=== PATIENT | female | born 1965 | race Caucasian/White ===

== ENCOUNTER 2019-11-21 10:18 | Emergency (ER) | payer SELFPAY ==
[2019-11-21 11:51] LABS: #Basophils 0.1 thou/uL (0.0-0.2); #Eosinphils 0.1 thou/uL (0.0-0.7); #Lymphocytes 2.2 thou/uL (1.20-3.40); #Neutrophils 11.3 thou/uL (1.40-6.50); %Basophils 0.9 % (0.0-1.0); %Eosinophils 0.5 % (0.0-10.0); %Lymphocytes 15.2 % (21.0-51.0); %Monocytes 6.5 % (0.0-10.0); %Neutrophils 76.9 % (42.0-75.0); Hemoglobin 13.9 g/dL (12.0-16.0); Mean Corpuscular HGB CONC 33.1 g/dL (32.0-36.0); Mean Corpuscular Hemoglobin 30.6 pg (27.0-31.0); Mean Corpuscular Volume 92.5 fL (78.0-98.0); Mean Platelet Volume 6.6 fL (7.4-10.4); Platelet Count 273 thou/uL (130-400); Red Blood Cell (RBC) Count 4.54 mill/uL (4.20-5.40); White Blood Cell (WBC) Count 14.6 thou/uL (4.8-10.8)
[2019-11-21 11:56] LABS: Bilirubin Negative (Negative); Blood, Urine Small (Negative); Glucose, Urine (Dipstick) Negative (Negative); Ketone, Urine Negative (Negative); Leukocyte Trace (Negative); Nitrite Negative (Negative); Protein, Urine (Dipstick) Negative (Neg-Trace); Urobilinogen 0.2 mg/dL (Less than 2); pH, Urine 6.5 (5.0-9.0)
[2019-11-21] MEDS ORDERED: Iopamidol 370 76% 100 ML VIAL ONE (11:57)
[2019-11-21 12:00] LABS: Pregnancy Test - Urine (BHCG) Negative (Negative); Pregu Control Background? CLEAR/WHITE (CLR/WHITE); Pregu Control Bar Appear? YES (CONTROL BAR)
[2019-11-21 12:01] LABS: Clarity Hazy (Clear)
[2019-11-21 12:05] LABS: Bacteria/HPF Rare-Few HPF (None Seen); RBC/HPF 0-3 HPF (0-3); Squamous Epithelial 0-3 HPF (0-3); WBC/HPF 0-3 HPF (0-3)
[2019-11-21 12:07] LABS: ALT (SGPT) 8 U/L (8-55); AST (SGOT) 13 U/L (5-34); Albumin 3.8 g/dL (3.5-5.0); Alkaline Phosphatase 73 U/L (40-110); Anion Gap 14 mmol/L (10-20); BUN (Urea Nitrogen) 8 mg/dL (9.8-20.1); Bilirubin, Total 0.6 mg/dL (0.2-1.2); Calc. Creatinine Clearance 0 mL/min (70-130); Calcium 8.9 mg/dL (7.8-10.44); Carbon Dioxide 25 mmol/L (22-29); Chloride 101 mmol/L (98-107); Estimated GFR-MDRD Greater than 90; Globulin 2.8 g/dL (2.4-3.5); Glucose 82 mg/dL (70-105); Lipase 4 U/L (8-78); Potassium 3.9 mmol/L (3.5-5.1); Protein, Total 6.6 g/dL (6.0-8.3); Sodium 136 mmol/L (136-145)
--- NOTE | 2019-11-21 13:01 | CT ---
CT ABDOMEN AND PELVIS WITH IV CONTRAST 11/21/2019 CLINICAL INFORMATION: Left upper quadrant abdominal pain COMPARISON: None. Technique: Multiple contiguous axial CT images are obtained through the abdomen and pelvis with IV contrast. Cor onal reformatted images are provided. FINDINGS: Lower Chest: Minimal atelectasis. Vessels: Vascular calcifications in the abdominal aorta and iliac arteries. Abdomen: Portal vein:Patent Gallbladder: Within normal limits for CT imaging. Liver: Calcified granulomata present. Spleen: Multiple calcified granulomata. Pancreas: within normal limits. Adrenals: within normal limits. Kidneys: within normal limits. Bowel: There is evidence of colonic diverticulosis involving the transverse, descending, and sigmoid colon. Focal area of colonic wall thickening is seen involving the distal transverse colon at the level of the splenic fracture with adjacent pericolonic inflammatory changes seen. Given adjacent div erticula in this region, findings are probably attributable to diverticulitis. However, infectious or inflammatory colitis is is a possibility but felt less likely. Appendix: Normal in caliber. Peritoneum: Trace amount of free fluid is seen in the pelvis. There is no fluid collection seen to hunt ggest an abscess, no free intraperitoneal gas is identified. Mesentery and Retroperitoneum: No enlarged lymph nodes are seen by CT size criteria. An increased num geraldo of aortocaval lymph nodes are seen which may be reactive in origin. Abdominal Wall: within normal limits. Pelvis: Reproductive Organs: No pelvic masses. Bladder: Incompletely distended. Bones: Circumscribed lucency with sclerotic margins seen in the lateral aspect right femoral head nec k junction likely due to small cyst. No suspicious lytic or sclerotic osseous lesions are identified. IMPRESSION: 1. Focal area of colonic wall thickening and pericolonic inflammatory changes involving the distal tr ansverse colon at the splenic flexure. There are colonic diverticuli seen in this region, and findings are likely related to diverticulitis. Other etiologies for colitis are felt less likely. Fol low-up evaluation is recommended to ensure resolution of colonic wall thickening. 2. Trace free fluid in the pelvis.
[2019-11-21] MEDS ORDERED: metroNIDAZOLE 250 MG TAB ONE (13:12)
[2019-11-21] MEDS ORDERED: Cipro 250 MG TAB ONE (13:12)
== END 2019-11-21 13:29 | disposition home or self-care (01) ==
LOC: MADERS 10:18
DX: K57.30 Diverticulosis of large intestine without perforation or abscess without bleeding (principal); F17.210 Nicotine dependence, cigarettes, uncomplicated
CPT/HCPCS: 74177; 80053; 81003; 81015; 81025; 83605; 83690; 85025; Q9967